=== PATIENT | male | born 1995 | race African-American/Black ===

== ENCOUNTER 2023-04-23 00:32 | Emergency (ER) | payer OTHER ==
[2023-04-23] MEDS ORDERED: FAMOTIDINE 20 MG/2 ML VIAL IV STA (00:48)
[2023-04-23] MEDS ORDERED: methylPREDNISolone SOD SUCCI 125 MG/2 ML VIAL IV STA (00:48)
[2023-04-23] MEDS ORDERED: diphenhydrAMINE 50 MG/ML 1 ML VIAL IVP STA (00:48)
[2023-04-23] MEDS ORDERED: IPRATROPIUM-ALBUTEROL 3 ML NEB INHALATION STA (00:48)
--- NOTE | 2023-04-23 00:57 | ED ---
SOB HPI - General Source: patient, RN notes reviewed Mode of arrival: ambulatory Limitations: no limitations - History of Present Illness MD Complaint: shortness of breath, chest pain <Inez Macias - Last Filed: 04/23/23 04:21> <Efrem Gonzalez - Last Filed: 04/23/23 08:17> - General Chief Complaint: Shortness of Breath Stated Complaint: Possible Allergic Reaction, Difficulty Breathing Time Seen by Provider: 04/23/23 00:41 - History of Present Illness Initial Comments: This is a 27 year old male who presents to the emergency department for shortness of breath. States that about 1 hour prior to arrival he had a sudden onset of shortness of breath and felt like he could not catch his breath. Reports associated chest heaviness. States that he just moved to the area with his fianc and son on April 13. The house they moved into was found to have bed bugs. States that they have bites all over their extremities. He wonders if he may be having an allergic reaction from these bites. Denies any problems with allergic reactions in the past. Also denies any history of similar symptoms in the past. Denies any history of asthma or other upper respiratory illnesses. Denies any fevers, chills, sore throat, cough, palpitations, abdominal pain, nausea, vomiting, diarrhea, back pain, or headaches. (Inez Macias) - Related Data Allergies Allergy/AdvReac Type Severity Reaction Status Date / Time No Known Allergies Allergy Verified 04/23/23 00:35 Review of Systems ROS Other: All systems not noted in ROS Statement are negative. <Inez Macias - Last Filed: 04/23/23 04:21> ROS Other: All systems not noted in ROS Statement are negative. <Efrem Gonzalez - Last Filed: 04/23/23 08:17> ROS Statement: Those systems with pertinent positive or pertinent negative responses have been documented in the HPI. Past Medical History Past Medical History: Hypertension History of Any Multi-Drug Resistant Organisms: None Reported Additional Past Surgical History / Comment(s): Neck surgery Past Psychological History: No Psychological Hx Reported Smoking Status: Current every day smoker Past Alcohol Use History: Occasional Past Drug Use History: None Reported <Inez Macias - Last Filed: 06/11/23 04:21> General Exam Limitations: no limitations General appearance: alert, in no apparent distress Head exam: Present: atraumatic, normocephalic, normal inspection Respiratory exam: Present: normal lung sounds bilaterally. Absent: respiratory distress, wheezes, rales, rhonchi, stridor Cardiovascular Exam: Present: normal rhythm, tachycardia Neurological exam: Present: alert, oriented X3, CN II-XII intact Psychiatric exam: Present: normal affect, normal mood Skin exam: Present: other (Erythematous maculopapular lesions on the bilateral upper and lower extremities consistent with insect bites.) <Inez Macias - Last Filed: 04/23/23 04:21> Course Vital Signs 04/23/23 04/23/23 04/23/23 00:36 01:00 01:10 Temperature 97.8 F Pulse Rate 112 H 104 H 101 H Respiratory 24 Rate Blood Pressure 122/88 O2 Sat by Pulse 97 Oximetry Medical Decision Making - Lab Data Result diagrams: 04/23/23 01:06 04/23/23 01:06 - Radiology Data Radiology results: report reviewed, image reviewed <Inez Macias - Last Filed: 04/23/23 04:21> - Lab Data Result diagrams: 04/23/23 01:06 04/23/23 01:06 <Efrem Gonzalez - Last Filed: 04/23/23 08:17> - Medical Decision Making This is a 27-year-old male who presents to the emergency department for shortness of breath. Was pt. sent in by a medical professional or institution? @ -No Did you speak to anyone other than the patient for history? @ -No Did you review nursing and triage notes? @ -Yes, and I agree, it is accurate with regards to the patient's symptoms. Were old charts reviewed? @ -No Differential Diagnosis? @ -Differential Dyspnea: Coronary syndrome, arrhythmia, tamponade, asthma, COPD, pulmonary embolism, pneumonia, pneumothorax, pulmonary effusion, anaphylaxis, diabetic ketoacidosis, flailed chest, pulmonary contusion, diaphragmatic rupture, anemia, neuromuscular, this is not meant to be an all-inclusive list. EKG interpreted by me (3pts min.)? @ -EKG interpreted by me demonstrating the following: Sinus tachycardia. Ventricular rate 101 beats per minute, AK interval 140 ms, QRS duration 80 ms, Q TC 407 ms. X-rays interpreted by me (1pt min.)? @ -Chest x-ray obtained, my interpretation identifies no localized consolidations or infiltrates. CT interpreted by me (1pt min.)? @ -Pending U/S interpreted by me (1pt. min.)? @ -Not obtained What testing was considered but not performed? (CT, X-rays, U/S, labs)? Why? @ -None What meds were considered but not given? Why? @ -None Did you discuss the management of the patient with other professionals? @ -No Did you reconcile home meds? @ -No Was smoking cessation discussed for >3mins.? @ -No Was critical care preformed (if so, how long)? @ -No Were there social determinants of health that impacted care today? How? (Homelessness, low income, unemployed, alcoholism, drug addiction, de [place] garza sportation, low edu. Level, literacy, decrease access to med. care, intermediate, rehab)? @ -No Was there de-escalation of care discussed even if they declined? (Discuss DNR or withdrawal of care, Hospice)? @ -No What co-morbidities impacted this encounter? (DM, HTN, Smoking, COPD, CAD, Cancer, CVA, Hep., AIDS, mental health diagnosis, sleep apnea, morbid obesity)? @ -HTN Was patient admitted / discharged? @ -Chest x-ray obtained revealing no acute process. DuoNeb breathing treatment administered, which he felt was beneficial. He was also given an allergy cocktail due to this concern with Solu-Medrol, Benadryl, and Pepcid, which he also felt was beneficial. Lab work obtained revealing a very minor elevation in his d-dimer at 0.70. This was discussed with the patient, and a CTA of the chest was subsequently obtained. Case signed out to ED attending, Dr. Huff, at shift completion, pending CTA results. Undiagnosed new problem with uncertain prognosis? @ -None Drug Therapy requiring intensive monitoring for toxicity (Heparin, Nitro, Insulin, Cardizem)? @ -None Were any procedures done? @ -None (Inez Macias) Patient's CT of the chest was interpreted by myself. There is no PE no infiltrate no other acute abnormality noted. I went into the room to reevaluate the patient he was feeling better. Patient's sleeping in the room I had to awaken him prior to talking to him. Patient does not appear in any respiratory distress and he stated he did not feel short of breath anymore. (Efrem Gonzalez) - Lab Data Lab Results 04/23/23 04/23/23 04/23/23 Range/Units 01:06 01:06 01:06 WBC 7.5 (3.8-10.6) k/uL RBC 4.76 (4.30-5.90) m/uL Hgb 13.7 (13.0-17.5) gm/dL Hct 40.8 (39.0-53.0) % MCV 85.7 (80.0-100.0) fL MCH 28.8 (25.0-35.0) pg MCHC 33.6 (31.0-37.0) g/dL RDW 13.2 (11.5-15.5) % Plt Count 233 (150-450) k/uL MPV 9.7 Neutrophils % 40 % Lymphocytes % 46 % Monocytes % 4 % Eosinophils % 8 % Basophils % 1 % Neutrophils # 3.0 (1.3-7.7) k/uL Lymphocytes # 3.4 (1.0-4.8) k/uL Monocytes # 0.3 (0-1.0) k/uL Eosinophils # 0.6 (0-0.7) k/uL Basophils # 0.0 (0-0.2) k/uL PT 11.6 (9.0-12.0) sec INR 1.1 (<1.2) APTT 25.1 (22.0-30.0) sec D-Dimer 0.70 H (<0.60) mg/L FEU Sodium 139 (137-145) mmol/L Potassium 4.1 (3.5-5.1) mmol/L Chloride 105 (98-107) mmol/L Carbon Dioxide 23 (22-30) mmol/L Anion Gap 11 mmol/L BUN 11 (9-20) mg/dL Creatinine 0.91 (0.66-1.25) mg/dL Est GFR (CKD-EPI)AfAm >90 (>60 ml/min/1.73 sqM) Est GFR (CKD-EPI)NonAf >90 (>60 ml/min/1.73 sqM) Glucose 111 H (74-99) mg/dL Plasma Lactic Acid Anthony (0.7-2.0) mmol/L Calcium 9.1 (8.4-10.2) mg/dL Total Bilirubin 0.8 (0.2-1.3) mg/dL AST 33 (17-59) U/L ALT 40 (4-49) U/L Alkaline Phosphatase 109 (38-126) U/L Troponin I (0.000-0.034) ng/mL Total Protein 7.4 (6.3-8.2) g/dL Albumin 4.3 (3.5-5.0) g/dL 04/23/23 04/23/23 Range/Units 01:06 01:06 WBC (3.8-10.6) k/uL RBC (4.30-5.90) m/uL Hgb (13.0-17.5) gm/dL Hct (39.0-53.0) % MCV (80.0-100.0) fL MCH (25.0-35.0) pg MCHC (31.0-37.0) g/dL RDW (11.5-15.5) % Plt Count (150-450) k/uL MPV Neutrophils % % Lymphocytes % % Monocytes % % Eosinophils % % Basophils % % Neutrophils # (1.3-7.7) k/uL Lymphocytes # (1.0-4.8) k/uL Monocytes # (0-1.0) k/uL Eosinophils # (0-0.7) k/uL Basophils # (0-0.2) k/uL PT (9.0-12.0) sec INR (<1.2) APTT (22.0-30.0) sec D-Dimer (<0.60) mg/L FEU Sodium (137-145) mmol/L Potassium (3.5-5.1) mmol/L Chloride (98-107) mmol/L Carbon Dioxide (22-30) mmol/L Anion Gap mmol/L BUN (9-20) mg/dL Creatinine (0.66-1.25) mg/dL Est GFR (CKD-EPI)AfAm (>60 ml/min/1.73 sqM) Est GFR (CKD-EPI)NonAf (>60 ml/min/1.73 sqM) Glucose (74-99) mg/dL Plasma Lactic Acid Anthony 1.3 (0.7-2.0) mmol/L Calcium (8.4-10.2) mg/dL Total Bilirubin (0.2-1.3) mg/dL AST (17-59) U/L ALT (4-49) U/L Alkaline Phosphatase (38-126) U/L Troponin I 0.016 (0.000-0.034) ng/mL Total Protein (6.3-8.2) g/dL Albumin (3.5-5.0) g/dL Disposition <Inez Macias - Last Filed: 04/23/23 04:21> Is patient prescribed a controlled substance at d/c from ED?: No Time of Disposition: 08:16 <Efrem Gonzalez - Last Filed: 04/23/23 08:17> Clinical Impression: Dyspnea Disposition: HOME SELF-CARE Instructions (If sedation given, give patient instructions): Dyspnea (ED) Referrals: Richard Prince DO [Primary Care Provider] - 1-2 days
[2023-04-23 01:40] LABS: Basophils % (A) 1 %; Eosinophils # (A) 0.6 k/uL (0-0.7); Eosinophils % (A) 8 %; HCT 40.8 % (39.0-53.0); HGB 13.7 gm/dL (13.0-17.5); Lymphocytes # (A) 3.4 k/uL (1.0-4.8); Lymphocytes % (A) 46 %; MCH 28.8 pg (25.0-35.0); MCHC 33.6 g/dL (31.0-37.0); MCV 85.7 fL (80.0-100.0); Mean Platelet Volume 9.7; Monocytes # (A) 0.3 k/uL (0-1.0); Monocytes % (A) 4 %; Neutrophils % (A) 40 %; Platelet Count 233 k/uL (150-450); RBC 4.76 m/uL (4.30-5.90); RDW 13.2 % (11.5-15.5); WBC 7.5 k/uL (3.8-10.6)
[2023-04-23 01:55] LABS: ALT 40 U/L (4-49); AST 33 U/L (17-59); African American GFR (CKD) >90 (>60 ml/min/1.73 sqM); Albumin 4.3 g/dL (3.5-5.0); Alkaline Phosphatase 109 U/L (38-126); Anion Gap 11 mmol/L; Blood Urea Nitrogen 11 mg/dL (9-20); Calcium 9.1 mg/dL (8.4-10.2); Carbon Dioxide 23 mmol/L (22-30); Chloride 105 mmol/L (98-107); Glucose 111 mg/dL (74-99); Non-African American GFR(CKD) >90 (>60 ml/min/1.73 sqM); Potassium 4.1 mmol/L (3.5-5.1); Sodium 139 mmol/L (137-145); Total Bilirubin 0.8 mg/dL (0.2-1.3); Total Protein 7.4 g/dL (6.3-8.2)
[2023-04-23 02:22] LABS: INR 1.1 (<1.2); Partial Thromboplastin Time 25.1 sec (22.0-30.0); Prothrombin Time 11.6 sec (9.0-12.0)
--- NOTE | 2023-04-23 02:36 | XR ---
EXAM: XR Chest, 2 Views CLINICAL HISTORY: ITS.REASON XR Reason: difficulty breathing TECHNIQUE: Frontal and lateral views of the chest. COMPARISON: No relevant prior studies available. FINDINGS: Lungs: No consolidation or mass. Pleural space: No effusion. Heart: No cardiomegaly. Bones/joints: No acute findings. IMPRESSION: No acute cardiopulmonary process.
--- NOTE | 2023-04-23 07:23 | CT ---
EXAMINATION TYPE: CT chest angio for PE DATE OF EXAM: 04/23/2023 COMPARISON: Radiograph same day HISTORY: 27 year-old male shortness of breath, chest pain, elevated d-dimer TECHNIQUE: Contiguous axial scanning of the chest performed with IV Contrast, patient injected with 7 5 mL of Isovue 370. Coronal/sagittal MIP reconstructions performed. CT DLP: 558.1 mGycm Automated exposure control for dose reduction was used. FINDINGS: ACF hardware. Heart normal size without pericardial effusion. No flattening of the interventricular s eptum reflux of contrast into the hepatic veins. Ectatic aortic root at 3.9 cm. Conventional arch vessel branching anatomy. There is some residual thymic tissue in the anterior mediastinum. No thoracic lymphadenopathy by CT s ize criteria. Satisfactory opacification of the pulmonary arterial system without evidence for pulmonary embolus.. Mild motion at the left lung base. No consolidation or pleural effusion. Visualized upper abdomen shows either IV contrast beginning to excrete from the kidneys or renal calc estephania measuring up to 8 mm. Mild degenerative disc disease T12-L1. IMPRESSION: 1. NO EVIDENCE FOR PULMONARY EMBOLUS OR ACUTE PULMONARY PROCESS. 2. UNCLEAR IF THE KIDNEYS ARE BEGINNING TO EXCRETE IV CONTRAST OR IF THERE ARE UNDERLYING NONOBSTRUCT FIGUEROA RENAL CALCULI MEASURING UP TO 8 MM. CLINICALLY CORRELATE. 3. INCIDENTAL ECTATIC AORTIC ROOT AT 3.9 CM.
[2023-04-23 08:59] VITALS: BP 133/76; PULSE 89; RESP 18; TEMP 98
== END 2023-04-23 08:58 | disposition home or self-care (01) ==
LOC: EC 00:32
DX: R06.00 Dyspnea, unspecified (principal); I10 Essential (primary) hypertension; F17.200 Nicotine dependence, unspecified, uncomplicated
CPT/HCPCS: 36415; 94640; 93005; 85379; 80053; 83605; 84484; 85025; 85610; 85730; 71046; 71275; 99285; 96374; 96375 ×2; J1200; J2930; Q9967

== ENCOUNTER 2023-04-26 01:34 | Emergency (ER) | payer OTHER ==
[2023-04-26] MEDS ORDERED: methylPREDNISolone SOD SUCCI 125 MG/2 ML VIAL IV STA (02:02)
[2023-04-26] MEDS ORDERED: diphenhydrAMINE 50 MG/ML 1 ML VIAL IVP STA (02:02)
[2023-04-26] MEDS ORDERED: FAMOTIDINE 20 MG/2 ML VIAL IV STA (02:02)
--- NOTE | 2023-04-26 02:36 | ED ---
General Adult HPI - General Chief complaint: Upper Respiratory Infection Stated complaint: SHIRLEY Time Seen by Provider: 04/26/23 01:46 Source: patient Mode of arrival: ambulatory Limitations: no limitations - History of Present Illness Initial comments: Patient is a 27-year-old male presenting with chief complaint of shortness of breath. Patient believes he is having an ALLERGIC reaction due to bed bugs. Patient states that he recently moved into a new house was unrelated bedbugs, he is currently waiting for an weathercaster. He states that this evening after he noticed some new bites on his arms began feeling short of breath. No chest pain or palpitations. No numbness, tingling, weakness. No cough, congestion, sore throat, fever, chills, nausea, vomiting. No swelling of the lips or throat. - Related Data Allergies Allergy/AdvReac Type Severity Reaction Status Date / Time No Known Allergies Allergy Verified 04/26/23 01:41 Review of Systems ROS Statement: Those systems with pertinent positive or pertinent negative responses have been documented in the HPI. ROS Other: All systems not noted in ROS Statement are negative. Past Medical History Past Medical History: Hypertension History of Any Multi-Drug Resistant Organisms: None Reported Additional Past Surgical History / Comment(s): Neck surgery Past Psychological History: No Psychological Hx Reported Smoking Status: Current every day smoker Past Alcohol Use History: Occasional Past Drug Use History: None Reported General Exam Limitations: no limitations General appearance: alert, in no apparent distress Head exam: Present: atraumatic, normocephalic, normal inspection Eye exam: Present: normal appearance, EOMI. Absent: scleral icterus, periorbital swelling ENT exam: Present: normal exam, normal oropharynx, mucous membranes moist Neck exam: Present: normal inspection, full ROM Respiratory exam: Present: normal lung sounds bilaterally. Absent: respiratory distress, wheezes, rales, rhonchi, stridor Cardiovascular Exam: Present: regular rate, normal rhythm, normal heart sounds. Absent: systolic murmur, diastolic murmur, rubs, gallop, clicks Neurological exam: Present: alert, oriented X3, CN II-XII intact Psychiatric exam: Present: normal affect, normal mood Skin exam: Present: warm, dry, intact, normal color. Absent: rash Course Vital Signs 04/26/23 04/26/23 01:37 02:43 Temperature 98.1 F 98.6 F Pulse Rate 111 H 99 Respiratory 20 18 Rate Blood Pressure 143/94 149/98 O2 Sat by Pulse 98 97 Oximetry Medical Decision Making - Medical Decision Making Was pt. sent in by a medical professional or institution (, [facility], DIELECTRIC TESTER, urgent care, hospital, or half-way...) When possible be specific @ -No Did you speak to anyone other than the patient for history (EMS, parent, family, police, friend...)? What history was obtained from this source @ -No Did you review nursing and triage notes (agree or disagree)? Why? @ -I reviewed and agree with nursing and triage notes Were old charts reviewed (outside hosp., previous admission, EMS record, old EKG, old radiological studies, urgent care reports/EKG's, half-way records)? Report findings @ -No old charts were reviewed Differential Diagnosis (chest pain, altered mental status, abdominal pain women, abdominal pain men, vaginal bleeding, weakness, fever, dyspnea, syncope, headache, dizziness, GI bleed, back pain, seizure, CVA, palpatations, mental health, musculoskeletal)? @ -MDM Differential Dyspnea: Coronary syndrome, arrhythmia, tamponade, asthma, COPD, pulmonary embolism, pneumonia, pneumothorax, pulmonary effusion, anaphylaxis, diabetic ketoacidosis, flailed chest, pulmonary contusion, diaphragmatic rupture, anemia, neuromuscular this is not meant to be an all-inclusive list. EKG interpreted by me (3pts min.). @ -As above X-rays interpreted by me (1pt min.). @ -None done CT interpreted by me (1pt min.). @ -None done U/S interpreted by me (1pt. min.). @ -None done What testing was considered but not performed or refused? (CT, X-rays, U/S, labs)? Why? @ -None What meds were considered but not given or refused? Why? @ -None Did you discuss the management of the patient with other professionals (professionals i.e. , [facility], DIELECTRIC TESTER, lab, RT, psych nurse, socially responsible investment adviser, harvest manager, teacher, booking officer, case work aide)? Give summary @ -No Was smoking cessation discussed for >3mins.? @ -No Was critical care preformed (if so, how long)? @ -No Were there social determinants of health that impacted care today? How? (Homelessness, low income, unemployed, alcoholism, drug addiction, transportation, low edu. Level, literacy, decrease access to med. care, intermediate, rehab)? @ -No Was there de-escalation of care discussed even if they declined (Discuss DNR or withdrawal of care, Hospice)? DNR status @ -No What co-morbidities impacted this encounter? (DM, HTN, Smoking, COPD, CAD, Cancer, CVA, ARF, Chemo, Hep., AIDS, mental health diagnosis, sleep apnea, morbid obesity)? @ -None Was patient admitted / discharged? Hospital course, mention meds given and route, prescriptions, significant lab abnormalities, going to OR and other pertinent info. @ -27-year-old male presenting with chief complaint of "I think I'm having an ALLERGIC reaction". Patient was seen here recently for similar symptoms, he reported having improvement after medication. On physical examination heart and lungs are clear to auscultation, no evidence of angioedema. Patient was given Benadryl, Solu-Medrol, and Pepcid. He reported improvement aftermedications and requested a breathing treatment. Patient's vital signs remained WNL and heart and lungs remained clear to auscultation, symptoms have resolved. I explained to the patient that he breathing treatment would not be of benefit at this time. I educated the patient on possible panic attack as his presentation does not fully aligned with an ALLERGIC reaction. Follow-up with PCP. Report back to ER with any new or worsening symptoms. Discussed return parameters and answered all questions. Patient conveyed verbal understanding and agreed to the plan. I discussed this case in detail with my attending Dr. Huff Undiagnosed new problem with uncertain prognosis? @ -No Drug Therapy requiring intensive monitoring for toxicity (Heparin, Nitro, Insulin, Cardizem)? @ -No Were any procedures done? @ -No Diagnosis/symptom? @ -Dyspnea Acute, or Chronic, or Acute on Chronic? @ -Acute Uncomplicated (without systemic symptoms) or Complicated (systemic symptoms)? @ -Uncomplicated Side effects of treatment? @ -No Exacerbation, Progression, or Severe Exacerbation? @ -No Poses a threat to life or bodily function? How? (Chest pain, USA, VT, pneumonia, PE, COPD, DKA, ARF, appy, cholecystitis, CVA, Diverticulitis, Homicidal, Suicidal, threat to staff... and all critical care pts) @ -No Disposition Clinical Impression: Dyspnea Disposition: HOME SELF-CARE Condition: Good Instructions (If sedation given, give patient instructions): Panic Attack (ED) Additional Instructions: Follow-up with PCP. Report back to ER with any new or worsening symptoms. Today in the ER you were given Benadryl, Pepcid, and Solu-Medrol. Is patient prescribed a controlled substance at d/c from ED?: No Referrals: Richard Prince DO [Primary Care Provider] - 1-2 days Time of Disposition: 02:36
[2023-04-26 02:44] VITALS: BP 149/98; PULSE 99; RESP 18; TEMP 98.6
== END 2023-04-26 02:44 | disposition home or self-care (01) ==
LOC: EC 01:34
DX: R06.00 Dyspnea, unspecified (principal); I10 Essential (primary) hypertension; F17.200 Nicotine dependence, unspecified, uncomplicated
CPT/HCPCS: 99284; 96374; 96375 ×2; J1200; J2930